=== PATIENT | female | born 1965 | race Caucasian/White ===

== ENCOUNTER 2017-10-24 08:39 | Outpatient (CLI) | payer BC | END 2017-10-24 08:40 | disposition home or self-care (01) | LOC: BICMAMMO 08:39 | PROVIDERS: ATTEND Family Medicine | DX: Z12.31 Encounter for screening mammogram for malignant neoplasm of breast (principal); Z13.820 Encounter for screening for osteoporosis; Z78.0 Asymptomatic menopausal state; M85.80 Other specified disorders of bone density and structure, unspecified site; Z80.3 Family history of malignant neoplasm of breast | CPT/HCPCS: 77063; 77067; 77080 ==

== ENCOUNTER 2018-10-30 13:29 | Outpatient (CLI) | payer BC ==
--- NOTE | 2018-10-30 14:11 | MMO ---
Bilateral MAMMO Bilat Screen [facility]. CLINICAL HISTORY: Patient is 53 years old and is seen for screening. The patient has the following family history of breast cancer: sister, at age 40. The patient has no personal history of cancer. VIEWS: The views performed were: bilateral craniocaudal with tomosynthesis and bilateral mediolateral oblique with tomosynthesis. FILMS COMPARED: The present examination has been compared to a prior imaging study performed at [facility] on 10/24/2017. MAMMOGRAM FINDINGS: There are scattered fibroglandular densities. There are stable benign appearing densities seen in both breasts. There are no suspicious masses, suspicious calcifications, or new areas of architectural distortion. IMPRESSION: THERE IS NO MAMMOGRAPHIC EVIDENCE OF MALIGNANCY. A ROUTINE FOLLOW-UP MAMMOGRAM IN 1 YEAR IS RECOMMENDED. THE RESULTS OF THIS EXAM WERE SENT TO THE PATIENT. ACR BI-RADS Category 2 - Benign finding MAMMOGRAPHY NOTE: 1. A negative mammogram report should not delay a biopsy if a dominant of clinically suspicious mass is present. 2. Approximately 10% to 15% of breast cancers are not detected by mammography. 3. Adenosis and dense breasts may obscure an underlying neoplasm.
--- NOTE | 2018-10-30 14:19 | BD ---
EXAM: Bone densitometry using DEXA HISTORY: 53 yo female. Screening for postmenopausal osteoporosis FINDINGS: L1--bone mineral density 0.900 g/sq cm; T score -0.8 ; Z score 0.0 L2--bone mineral density 0.942 g/sq cm; T score -0.8 ; Z score 0.2 L3--bone mineral density 1.010 g/sq cm; T score -0.7 ; Z score 0.3 L4--bone mineral density 1.048 g/sq cm; T score -0.1 ; Z score 0.9 Total L1-L4--bone mineral density 0.980 g/sq cm; T score -0.6 ; Z score 0.4 Left femoral neck--bone mineral density0.705; T score -1.3 ; Z score -0.3 Total proximal left femur--bone mineral density 0.866; T score -0.6 ; Z score 0.0 There has been an interval reduction of 10.1% in the BMD of the lumbar spine and a reduction of 12. 1% in the BMD of the proximal femur since the previous study of 09/20/2015. The 10 year fracture risk for a major osteoporotic fracture is 5.8% and for a hip fracture is 0.4%. IMPRESSION: Osteopenia
== END 2018-10-30 13:30 | disposition home or self-care (01) ==
LOC: BICMAMMO 13:29
PROVIDERS: ATTEND Family Medicine
DX: Z12.31 Encounter for screening mammogram for malignant neoplasm of breast (principal); Z13.820 Encounter for screening for osteoporosis; M85.852 Other specified disorders of bone density and structure, left thigh; Z80.3 Family history of malignant neoplasm of breast
CPT/HCPCS: 77063; 77067; 77080

== ENCOUNTER 2021-12-11 13:43 | Outpatient (CLI) | payer BC | END 2021-12-11 13:44 | disposition home or self-care (01) | LOC: SCSRAD 13:43 | PROVIDERS: ATTEND Internal Medicine Rheumatology | DX: M17.0 Bilateral primary osteoarthritis of knee (principal); M25.462 Effusion, left knee ==